=== PATIENT | female | born 1970 | race Caucasian/White ===

== ENCOUNTER 2024-01-24 18:37 | Emergency (ER) | payer BC ==
[~2024-01-24] VITALS: Ht 172.7 cm; Wt 92.3 kg
[2024-01-24 20:48] VITALS: BP 160/93; PULSE 105; TEMP 99.4; O2SAT 97
[2024-01-24] MEDS ORDERED: PROM118S5 PO (20:52)
[2024-01-24] MEDS ORDERED: PRED20TA PO (20:52)
[2024-01-24] MEDS ORDERED: AZIT-31 PO (20:52)
[2024-01-24] MEDS ORDERED: ALBU8HFA INH (20:52)
[2024-01-24] MEDS ORDERED: proMETHazine DM oral syrup 5ml UD PO STA (20:53)
[2024-01-24] MEDS: benzonatate 100mg capsule PO ONE (21:18)
[2024-01-24] MEDS: proMETHazine 6.25 mg/5 ml UD oral syrup PO ONE (21:18)
[2024-01-24 21:19] VITALS: RESP 16
== END 2024-01-24 21:23 | disposition home or self-care (01) ==
LOC: ER 18:38
DX: U07.1 COVID-19 (principal); Z79.2 Long term (current) use of antibiotics; Z79.52 Long term (current) use of systemic steroids; Z88.1 Allergy status to other antibiotic agents
CPT/HCPCS: 36415; 87811; 99283; Q0169